=== PATIENT | female | born 1960 | race Caucasian/White ===

== ENCOUNTER 2016-11-30 15:44 | Outpatient (CLI) | payer OTHER ==
[2015-11-03 13:09] VITALS: BP 145/90
[2016-11-30 16:07] LABS: BASOPHILS % 0.4 (0.0-1.5); EOSINOPHILS % 1.3 % (0.0-6.8); MEAN CORPUSCULAR HEMOGLOBIN 29.3 pg (28.0-34.0); MEAN CORPUSCULAR VOLUME 87.5 fl (80.0-100.0); MONOCYTES % 4.9 % (0.0-11.0); NEUTROPHILS # 1.9 # k/uL (1.4-7.7)
--- NOTE | 2016-11-30 17:04 | Diagnostic Imaging Report ---
[facility] [address] [facility].[address] [id number] Report Submission Date: Nov 30, 2016 5:00:29 PM CDT Patient Study Name: RAMIN DREW Date: Nov 30, 2016 4:02:56 PM CDT Modality Type: CR Gender: F Description: LOWER EXTREMITY : 62 Institution: [facility] Physician: ERIS FERNANDEZ - STEVE Examination: Plain film foot History: Discomfort Findings: 3 views of the foot demonstrates normal cortical margins. No fracture or dislocation. 5th metatarsal without cortical abnormality. Minimal articular degenerative changes. No soft tissue swelling. No joint effusion. Impression: Mild articular degenerative changes. No acute osseous process. Electronically signed on Nov 30, 2016 5:00:29 PM CDT by: Onofre BEDOLLA
== END 2016-11-30 15:45 ==
LOC: RAD 15:44
PROVIDERS: ATTEND Family Medicine
DX: R56.9 Unspecified convulsions (principal); M79.671 Pain in right foot
CPT/HCPCS: 36415; 73630; 80185; 80188; 85025

== ENCOUNTER 2017-06-07 09:31 | Outpatient (CLI) | payer OTHER ==
[2015-11-03 13:09] VITALS: BP 145/90
== END 2017-06-07 09:40 ==
LOC: OUT 09:31
PROVIDERS: ATTEND General Practice
DX: N95.2 Postmenopausal atrophic vaginitis (principal)
CPT/HCPCS: 99213

== ENCOUNTER 2017-07-05 08:58 | Outpatient (CLI) | payer OTHER ==
[2015-11-03 13:09] VITALS: BP 145/90
== END 2017-07-05 09:00 ==
LOC: OUT 08:58
PROVIDERS: ATTEND General Practice
DX: N95.2 Postmenopausal atrophic vaginitis (principal); N94.10 Unspecified dyspareunia
CPT/HCPCS: 99213

== ENCOUNTER 2017-08-02 08:57 | Outpatient (CLI) | payer OTHER ==
[2015-11-03 13:09] VITALS: BP 145/90
== END 2017-08-02 09:00 ==
LOC: OUT 08:57
PROVIDERS: ATTEND General Practice
DX: N95.2 Postmenopausal atrophic vaginitis (principal); N94.10 Unspecified dyspareunia
CPT/HCPCS: 99213

== ENCOUNTER 2018-06-17 18:43 | Emergency (ER) | payer OTHER ==
--- NOTE | 2018-06-17 19:14 | ED Physician Documentation ---
Skin Rash - HISTORIAN Historian: patient - HPI Chief Complaint: Skin Rash Additional Information: Patient is a 57-year-old female that presents to the ER with a rash to the right flank area- last night she states that the area felt sore "like it was bruised" then this morning she noticed spots (rash) to the right flank. She describes as itchy. She denies any fever, chills, nausea or vomiting. Front/Back of Body, Lg ([place]): 1 - right flank rash Onset: days ago (Started yesterday) Timing: still present Duration: intermittent pain Location: trunk (right flank) Quality: itchy Identified Cause?: Yes (Shingles) Where: home Context: Medication Exposure: none Context: Food Exposure: none Context: Other Exposure: denies: poison rocco, poison oak Further Comments: no - ROS CONST: none CVS/RESP: none EYES/ENT: none GI/: none MS/SKIN/LYMPH: none NEURO/PSYCH: none - PAST HX Past History: other (Abscess of brain removed at 3 years old) Other History: none Surgeries/Procedures: Yes (, CTR) Immunizations: tetanus, UTD. denies: zostavax Allergies/Adverse Reactions: Allergies Allergy/AdvReac Type Severity Reaction Status Date / Time No Known Allergies Allergy Verified 06/17/18 19:17 Home Medications: Ambulatory Orders Medication Instructions Recorded Famciclovir [Famvir] 500 mg PO Q8 #21 tablet 06/17/18 Ibuprofen 600 mg PO Q6 PRN #30 tablet 06/17/18 Lidocaine 1 appl TP TID PRN #1 bottle 06/17/18 - SOCIAL HX Smoking History: non-smoker Alcohol Use: none Drug Use: none - FAMILY HX Family History: none - VITAL SIGNS Vital Signs: Vital Signs Temp Pulse Resp BP Pulse Ox 97.2 F L 68 12 127/77 98 06/17/18 19:05 06/17/18 19:05 06/17/18 19:05 06/17/18 19:05 06/17/18 19:05 Skin Rash Physical Exam - EXAM General Appearance: no acute distress, alert Skin: warm,dry, other (vesicular rash to the dermatone area of the right flank (grouped vesicles)) Location: abdomen (right flank) Character: vesicular Symptoms: warmth, inflammation Extremities: non-tender, nml ROM EENT: eyes nml inspection, pharynx nml Neck: trachea midline Respiratory: no resp distress, breath sounds normal CVS: reg. rate & rhythm, heart sounds nml Abdomen: non-tender, nml bowel sounds Neuro/Psych: oriented x3, CN's nml as tested, motor nml, sensation nml, mood/affect nml Discharge Clincal Impression: Shingles rash Prescriptions: Famciclovir [Famvir] 500 mg PO Q8 #21 tablet Lidocaine 1 appl TP TID PRN #1 bottle PRN Reason: For itching/pain Referrals: Lenin Pritchard MD [Primary Care Provider] - 2 Days Additional Instructions: Take medications as directed May use lidocaine ointment 2-3 times a day to the affected area Increase fluid intake Ibuprofen 600mg by mouth every 6 hrs as needed for pain Follow up with PCP as needed Work excuse given Condition: Good Disposition: 01 HOME, SELF-CARE Decision to Admit: NO Decision Time: 19:26
[2018-06-17 19:16] VITALS: BP 127/77
== END 2018-06-17 19:28 | disposition home or self-care (01) ==
LOC: ED 18:43
DX: B02.9 Zoster without complications (principal)
CPT/HCPCS: 99281; 99282